=== PATIENT | female | born 1955 | race Caucasian/White ===

== ENCOUNTER → 2016-09-03 | Outpatient (CLI) | payer BC ==
[~2016-09-03] MED LIST: BUPR100T13 PO; CALCTAB5 PO; DIPH25CA37 PO; ESTR0.5T3 PO; LEVO100T7 PO; MULT-506 PO; PRLSR20 PO; SYMIN160 INH; WHEATAB2 PO
[2016-09-03 13:02] LABS: ESTIMATED AVERAGE GLUCOSE 275 mg/dl; HA1C FLAG Normal (Normal)
[2016-09-03 14:33] LABS: ALB/GLOB RATIO 1.3 (0.9-2); ALKALINE PHOSPHATASE 83 U/L (45-117); ALT/SGPT 76 U/L (12-78); AST/SGOT 25 U/L (15-37); BLOOD UREA NITROGEN 21 mg/dl (7-18); BUN/CREATININE RATIO 17.3 (10-20); CALCIUM 8.9 mg/dl (8.5-10.1); CARBON DIOXIDE 19 mmol/L (21-32); CHLORIDE 101 mmol/L (98-107); CHOLESTEROL 182 mg/dl (0-200); CHOLESTEROL/HDL RATIO 3.6; HDL CHOLESTEROL 50 mg/dl; LDL CHOLESTEROL CALCULATED 80 mg/dl; POTASSIUM 4.5 mmol/L (3.5-5.1); SODIUM 135 mmol/L (136-145); TRIGLYCERIDES 262 mg/dl (0-150); VERY LOW DENSITY LIPOPROT CALC 52 mg/dl
[2016-09-03 15:05] LABS: GLUCOSE 517 mg/dl (70-99)
[2016-09-03 15:47] LABS: BETA-HYDROXYBUTYRATE 1.29 mg/dL (0.2-2.81)
== END | disposition home or self-care (01) ==
LOC: C.LABBFT 10:54
PROVIDERS: ATTEND Internal Medicine
DX: R73.01 Impaired fasting glucose (principal); E03.9 Hypothyroidism, unspecified

== ENCOUNTER → 2016-10-10 | Outpatient (CLI) | payer BC ==
[~2016-10-10] VITALS: Ht 153.7 cm; Wt 78.9 kg
[2016-10-10 15:30] VITALS: BP_DIAS 82
[2016-10-10 15:36] VITALS: Ht 153.7 cm; Wt 78.9 kg
== END | disposition home or self-care (01) ==
LOC: C.NRED 12:57
PROVIDERS: ATTEND Internal Medicine
DX: E11.9 Type 2 diabetes mellitus without complications (principal)

== ENCOUNTER → 2016-12-27 | Outpatient (CLI) | payer BC ==
--- NOTE | 2016-12-27 13:51 | DIAGNOSTIC IMAGING REPORT ---
CT LUNG SCREENING, LOW DOSE WITH COMPUTER-AIDED DETECTION (CAD) CLINICAL HISTORY: Former smoker. Screening for lung cancer. COMPARISON STUDY: Chest radiograph August 23, [address] August 24, 2009. CT DOSE: 84.63 mGy.cm TECHNIQUE: Low-dose helical CT was acquired without intravenous contrast from lung apices to bases and reconstructed at 2.5 mm every 2 mm. CAD was utilized for this study. FINDINGS: There are no enlarged axillary, mediastinal or hilar lymph nodes. The heart is mildly enlarged. Central airways are patent. Note is made of a 1.9 x 1.7 cm nodular opacity within the right middle lobe shown on image 139 of 262. While indeterminate, the appearance favors atelectasis. No additional nodules or nodular opacities are identified. Minimal lingular opacity reflects atelectasis. Central airways are patent. There is no pneumothorax or pleural effusion. There is fatty infiltration of the liver. IMPRESSION: 1. 1.9 x 1.7 cm nodular opacity within the right middle lobe. While indeterminate, the configuration favors atelectasis. A pulmonary nodule could appear similar although is considered less likely. A follow-up diagnostic chest CT in 3 months is recommended. 2. Fatty liver. 3. No thoracic lymphadenopathy. CAD FINDINGS: Overall Lung RADS Category: 4B Lung RADS Management Recommendation: Lung-RADS 4B: Detailed follow up needed. Lung RADS Follow Up Date: March 29, [address] chest [address]. Lung RADS Nodule ID: 1 Electronically signed by: Jorge Alberto Leal M.D. 12/27/2016 1:50 PM Dictated Date/Time: 12/27/2016 8:31 AM
== END | disposition home or self-care (01) ==
LOC: C.CTS 08:08
PROVIDERS: ATTEND Internal Medicine
DX: R91.8 Other nonspecific abnormal finding of lung field (principal); Z87.891 Personal history of nicotine dependence; K76.0 Fatty (change of) liver, not elsewhere classified

== ENCOUNTER → 2017-04-01 | Outpatient (CLI) | payer BC ==
--- NOTE | 2017-04-01 13:12 | DIAGNOSTIC IMAGING REPORT ---
(CHEST) THORAX WITHOUT CLINICAL HISTORY: 61 years-old Female presenting with solitary lung nodule. TECHNIQUE: Multidetector CT imaging of the chest was performed without the use of intravenous contrast. IV contrast: None. A dose lowering technique was used consistent with the principles of ALARA (as low as reasonably achievable). COMPARISON: 08/24/2009 and low-dose screening CT on 12/27/2016 CT DOSE (mGy.cm): The estimated cumulative dose is 354.06 mGy.cm. FINDINGS: Power Regulator topogram: Unremarkable. On soft tissue windows, normal thyroid and thoracic inlet. No axillary, supraclavicular, hilar, or mediastinal lymphadenopathy. Atherosclerosis of the descending thoracic aorta. Normal heart size. Minimal corner artery calcification. No pericardial or pleural effusion. Severe hepatic steatosis. On lung windows, platelike consolidation in the right middle lobe, likely atelectasis or scarring. This is unchanged in size. 3 mm solid perifissural nodule in the right lower lobe (series 4 image 158). This is unchanged since 2009. Airways patent. On bone windows, degenerative changes of the spine. IMPRESSION: 1. Previously noted nodular opacity in the right middle lobe is unchanged in size and most likely represents platelike atelectasis or scarring. 2. Hepatic steatosis. Electronically signed by: Devin Villagomez M.D. 04/01/2017 1:10 PM Dictated Date/Time: 04/01/2017 1:05 PM
== END | disposition home or self-care (01) ==
LOC: C.CTS 12:52
PROVIDERS: ATTEND Internal Medicine
DX: R91.1 Solitary pulmonary nodule (principal); K76.0 Fatty (change of) liver, not elsewhere classified

== ENCOUNTER → 2017-04-15 | Outpatient (CLI) | payer BC ==
--- NOTE | 2017-04-16 15:13 | MAMMOGRAPHY REPORT ---
BILATERAL DIGITAL SCREENING MAMMOGRAM TOMOSYNTHESIS WITH CAD: 04/15/2017 CLINICAL HISTORY: Routine screening. Patient has no complaints. TECHNIQUE: Breast tomosynthesis in addition to standard 2D mammography was performed. Current study was also evaluated with a Computer Aided Detection (CAD) system. COMPARISON: Comparison is made to exams dated: 04/11/2016 mammogram, 04/06/2015 mammogram, 02/23/2014 dom mogram, 12/09/2012 mammogram, 09/21/2011 mammogram, and 08/22/2010 mammogram - [facility] er. BREAST COMPOSITION: The tissue of both breasts is almost entirely fatty. FINDINGS: There are stable focal asymmetries in the left upper outer posterior breast and subareolar breast. No new suspicious mass, architectural distortion or cluster of microcalcifications is seen. IMPRESSION: ACR BI-RADS CATEGORY 1: NEGATIVE There is no mammographic evidence of malignancy. A 1 year screening mammogram is recommended. The pa tient will receive written notification of the results. Approximately 10% of breast cancers are not detected with mammography. A negative mammographic report should not delay biopsy if a clinically suggestive mass is present. Azul Gu M.D. ay/:04/15/2017 21:04:05 [employer] Fitness Program Coordinator: Malissa Jackson, [facility] letter sent: Normal 1/2 BI-RADS Code: ACR BI-RADS Category 1: Negative
== END | disposition home or self-care (01) ==
LOC: C.MAMM 09:06
PROVIDERS: ATTEND Internal Medicine
DX: Z12.31 Encounter for screening mammogram for malignant neoplasm of breast (principal)

== ENCOUNTER → 2017-05-03 | Outpatient (CLI) | payer BC ==
--- NOTE | 2017-05-03 10:27 | DIAGNOSTIC IMAGING REPORT ---
ABDOMINAL ULTRASOUND, RIGHT UPPER QUADRANT HISTORY: THROMBOCYTOPENIA. COMPARISON: None. FINDINGS: Pancreas: The pancreas demonstrates a normal echotexture. Liver: The liver is echogenic consistent with fatty change. Gallbladder: No gallbladder wall thickening. No gallstones. 3 mm gallbladder polyp. CBD: 6 mm. Right kidney: No hydronephrosis. Spleen: Normal in size measuring 8.9 cm in length. IMPRESSION: 1. Hepatic steatosis. 2. The spleen is normal in size. 3. A 3 mm gallbladder polyp. Electronically signed by: Gabe Acuna M.D. 05/03/2017 10:26 AM Dictated Date/Time: 05/03/2017 10:19 AM
== END | disposition home or self-care (01) ==
LOC: C.ULTR 09:42
PROVIDERS: ATTEND Internal Medicine Hematology & Oncology
DX: D69.6 Thrombocytopenia, unspecified (principal); Z86.19 Personal history of other infectious and parasitic diseases

== ENCOUNTER → 2017-07-31 | Outpatient (CLI) | payer BC ==
[2017-07-31 17:26] LABS: MEAN CORPUSCULAR HGB CONC 34.6 g/dl (32-36)
[2017-07-31 17:38] LABS: HEMATOCRIT 44.5 % (37-47); HEMOGLOBIN 15.4 g/dL (12.0-16.0); MEAN CELL VOLUME 90.6 fL (80-100); MEAN CORPUSCULAR HEMOGLOBIN 31.4 pg (25-34); RED CELL DISTRIBUTION WIDTH CV 12.9 % (11.5-14.5); RED CELL DISTRIBUTION WIDTH SD 42.6 fL (36.4-46.3)
[2017-07-31 17:39] LABS: ALT/SGPT 118 U/L (12-78); AST/SGOT 55 U/L (15-37); BLOOD UREA NITROGEN 21 mg/dl (7-18); CALCIUM 8.2 mg/dl (8.5-10.1); CARBON DIOXIDE 26 mmol/L (21-32); GLUCOSE 125 mg/dl (70-99); LIPASE 121 U/L (73-393); POTASSIUM 4.1 mmol/L (3.5-5.1); SODIUM 138 mmol/L (136-145)
[2017-07-31 17:41] LABS: ALKALINE PHOSPHATASE 75 U/L (45-117)
[2017-07-31 17:51] LABS: PLATELET COUNT 118 K/uL (130-400)
[2017-07-31 18:17] LABS: BASO % 0.7 %; BASO ABS # 0.04 K/uL (0-0.2); EOS % 3.4 %; EOS ABS # 0.19 K/uL (0-0.5); IG# 0.01 K/uL (0.00-0.02); LYMPH % 29.6 %; LYMPH ABS # 1.66 K/uL (1.2-3.4); MONO % 6.4 %; MONO ABS # 0.36 K/uL (0.11-0.59); NEUT % 59.7 %; NEUT ABS # 3.34 K/uL (1.4-6.5)
== END | disposition home or self-care (01) ==
LOC: C.LABBFT 13:24
PROVIDERS: ATTEND Nurse Practitioner
DX: R11.2 Nausea with vomiting, unspecified (principal)

== ENCOUNTER → 2017-08-02 | Outpatient (CLI) | payer BC ==
--- NOTE | 2017-08-02 08:18 | DIAGNOSTIC IMAGING REPORT ---
ULTRASOUND RIGHT UPPER QUADRANT ABDOMEN CLINICAL HISTORY: Nausea and vomiting. COMPARISON STUDY: Abdominal ultrasound dated 05/03/2017. TECHNIQUE: Real-time, grayscale, and color flow sonography of the right upper quadrant of the abdomen was performed. Images are reviewed in the transverse and longitudinal planes. FINDINGS: Liver: The liver is enlarged and demonstrates heterogeneously increased echotexture consistent with hepatic steatosis. Note that this degrades acoustic penetration of the liver. There is no intrahepatic biliary ductal dilatation. The main portal vein is patent. Gallbladder: Small gallbladder polyps are incidentally noted and measure up to 3 mm. The gallbladder is otherwise normal in appearance. No gallstones are identified. There is no gallbladder wall thickening or pericholecystic fluid. A sonographic Narvaez's sign is reportedly absent. The common bile duct measures up to 0.7 cm in diameter. Pancreas: Visualized portions of the pancreatic head and body are normal in appearance. Right kidney: Survey images of the right kidney demonstrate normal size and echotexture. There is no hydronephrosis. Ascites: None. IMPRESSION: 1. No acute sonographic abnormality is identified in the right upper quadrant. No gallstones are seen. 2. Hepatomegaly and severe hepatic steatosis. 3. Small gallbladder polyps are incidentally noted and unchanged. Electronically signed by: Perez Covington M.D. 08/02/2017 8:16 AM Dictated Date/Time: 08/02/2017 8:14 AM
== END | disposition home or self-care (01) ==
LOC: C.ULTR 07:40
PROVIDERS: ATTEND Nurse Practitioner
DX: R11.2 Nausea with vomiting, unspecified (principal)

== ENCOUNTER → 2017-08-12 | Outpatient (CLI) | payer OTHER ==
[2017-08-12 10:44] LABS: MEAN CORPUSCULAR HGB CONC 34.2 g/dl (32-36)
[2017-08-12 10:55] LABS: HEMATOCRIT 41.2 % (37-47); HEMOGLOBIN 14.1 g/dL (12.0-16.0); MEAN CELL VOLUME 91.8 fL (80-100); MEAN CORPUSCULAR HEMOGLOBIN 31.4 pg (25-34); RED CELL DISTRIBUTION WIDTH CV 13.1 % (11.5-14.5); RED CELL DISTRIBUTION WIDTH SD 43.6 fL (36.4-46.3); WHITE BLOOD COUNT 6.55 K/uL (4.8-10.8)
[2017-08-12 11:04] LABS: MEAN PLATELET VOLUME 14.7 fL (7.4-10.4); PLATELET COUNT 134 K/uL (130-400)
[2017-08-12 11:21] LABS: ALBUMIN 3.9 gm/dl (3.4-5.0)
== END | disposition home or self-care (01) ==
LOC: C.LAB1850 10:16
PROVIDERS: ATTEND Nurse Practitioner
DX: R11.2 Nausea with vomiting, unspecified (principal); R19.7 Diarrhea, unspecified; R74.0 Nonspecific elevation of levels of transaminase and lactic acid dehydrogenase [LDH]; D69.6 Thrombocytopenia, unspecified

== ENCOUNTER 2021-04-24 07:19 | Inpatient (IN) ==
[2021-04-24] MEDS ORDERED: CEFEPIME 2,000 MG/20 ML VIAL IV STA (07:28)
[2021-04-24] MEDS ORDERED: SODIUM CHLORIDE 0.9% 1000ML 1,000 ML IV STA (07:28)
[2021-04-24 07:58] LABS: Appearance Urine Clear (Clear); Bacteria Urine Automated Negative (Negative); Bilirubin Urine Negative (Negative); Blood Urine 1+ (Negative); Color Urine Yellow; Epithelial Cell Urine Auto >30 /lpf (0-5); Glucose Urine UA Negative (Negative); Ketones Urine Negative (Negative); Leukocyte Esterase Urine 2+ (Negative); Nitrite Urine Negative (Negative); Protein Urine 1+ (Negative); Specific Gravity Urine 1.016 (1.000-1.030); Urobilinogen Urine Negative (Negative); WBC Urine Automated >30 /hpf (0-5); pH Urine 5.5 (4.5-7.5)
[2021-04-24 08:10] LABS: Albumin Level 3.1 gm/dl (3.4-5.0); BUN Creatinine Ratio 10.9 (10-20); Calcium 8.3 mg/dl (8.5-10.1); Creatinine Clr Calc Pharmacy 41.7 ml/min; Est GFR (African American) 51.7 ml/min; Est GFR (Non-African American) 44.6 ml/min; Potassium 4.3 mmol/L (3.5-5.1)
[2021-04-24 08:13] LABS: Albumin Globulin Ratio 0.9 (0.9-2); Bilirubin,Total 0.5 mg/dl (0.2-1); Globulin 3.5 gm/dl (2.5-4.0); Total Protein 6.6 gm/dl (6.4-8.2)
[2021-04-24 08:15] LABS: Basophils # (auto) 0.05 K/uL (0-0.2); Basophils % (auto) 0.8 %; Eosinophils # (auto) 0.12 K/uL (0-0.5); Giant Platelets 1+; Hematocrit (blood only) 38.5 % (37-47); Hemoglobin 12.6 g/dL (12.0-16.0); Immature Granulocytes # (auto) 0.01 K/uL (0.00-0.02); Immature Granulocytes % (auto) 0.2 %; Lymphocytes # (auto) 0.73 K/uL (1.2-3.4); Lymphocytes % (auto) 12.1 %; Mean Corpuscular Hemoglobin 30.2 pg (25-34); Mean Corpuscular Hgb Conc 32.7 g/dL (32-36); Mean Corpuscular Volume 92.3 fL (80-100); Mean Platelet Volume 14.7 fL (7.4-10.4); Monocytes # (auto) 0.59 K/uL (0.11-0.59); Monocytes % (auto) 9.8 %; Neutrophils # (auto) 4.54 K/uL (1.4-6.5); Neutrophils % (auto) 75.1 %; Platelet Count 111 K/uL (130-400); Platelet Estimate Decreased (Normal); RDW Coefficient of Variation 12.9 % (11.5-14.5); RDW Standard Deviation 43.9 fL (36.4-46.3); Red Blood Count 4.17 M/uL (4.2-5.4); White Blood Count 6.04 K/uL (4.8-10.8)
[2021-04-24] MEDS ORDERED: SODIUM CHLORIDE 0.9% 1000ML 1,000 ML IV ONE (08:35)
--- NOTE | 2021-04-24 09:29 | History & Physical Report ---
Date of Service April 24, 2021 Assessment & Plan (1) Acute pyelonephritis: Plan: Attending: Dr. Verdin Impression: 66-year-old female presented to emergency department yesterday and found to have urinary tract infection/acute pyelonephritis. Was discharged home on Bactrim. Blood cultures revealed gram-negative bacilli. Patient called by the emergency room staff and asked to report back to the hospital. She is being admitted for IV antibiotics and will be started on cefepime 2 g every 12 hours Patient with rigors, fever, gram-negative bacilli in urine and blood Renal ultrasound performed * Atrophic right kidney with nonobstructive calculus which was also seen on recent prior CT of abdomen and pelvis. * Possible minimal hydronephrosis on the left. * Nonobstructive calculi are seen. 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 labs (4) Lung nodule, solitary: Plan: Incidental finding on CT scan of the abdomen pelvis yesterday. Dedicated CT scan of the lung on 02/10/2020 and 02/13/2021 shows stable 3 mm right lower lobe nodule Patient with past medical history including tobacco abuse Continue annual screening (5) Hypothyroidism: Plan: Continue levothyroxine 88 mcg daily (6) Hypertension: Plan: Continue losartan Vital signs per protocol (7) Esophageal reflux: Plan: Omeprazole as an outpatient We will use pantoprazole while inpatient (8) Dyslipidemia: Plan: Continue rosuvastatin (9) Chronic obstructive pulmonary disease: Plan: Prior tobacco abuse history Symbicort as an outpatient Brio Ellipta (ICS/LABA) while inpatient Vital signs per protocol No evidence of acute exacerbation (10) Hepatosplenomegaly: Plan: noted on CT abd/pel could be from fatty liver f/u as outpt (11) Thrombocytopenia: Plan: likely secondary to liver issues and splenomegaly follow CBC (12) DVT prophylaxis: Plan: Heparin 5000 units subcutaneously every 12 hours Please refer to Dr. Verdin's addendum for further recommendations and corrections History of Present Illness Chief Complaint: Pyelonephritis Primary Care Provider: Jolie Leal MD Attending: Dr. Verdin This is a 66-year-old female no with a past medical history of cervicalgia, tubular adenoma of colon, history of thrombocytopenia, onychomycosis, solitary lung nodule right lower lobe, diabetes mellitus type 2, diverticulosis, hypertension, hypothyroidism. Patient states that last Saturday she began having some discomfort in the suprapubic region. She also noted some discomfort in the genital region. She thought initially that she may be developing a yeast infection but then developed fever and rigors over the weekend. She presented the emergency room yesterday and was treated with Bactrim and discharged home with a diagnosis of acute pyelonephritis. Patient was pancultured yesterday and today results revealed gram-negative bacilli in the urine as well as 2 out of 2 blood cultures. Patient was called and asked to report back to the emergency department for evaluation and IV antibiotics. We are then asked to evaluate the patient for appropriateness for admission. Patient reports that since starting the Bactrim she feels a little bit better but did still have some rigors yesterday. She has had no nausea or vomiting. She has no hematuria. She has noted that her urine has been darker. She has no specific CVA tenderness. She has no suprapubic tenderness today. Patient was given cefepime in the emergency department. Allergies Allergy/AdvReac Type Severity Reaction Status Date / Time Penicillins Allergy Mild HIVES;SOB Verified 04/24/21 08:12 shellfish derived Allergy Mild HIVES;SOB Verified 04/24/21 08:12 clarithromycin [From Biaxin] AdvReac Verified 04/24/21 08:12 varenicline [From Chantix] AdvReac pt felt Verified 04/24/21 08:12 immobile Home Medications Medication Instructions Recorded Confirmed Type fluticasone propionate 50 1 sprays INTRANASAL HS #1 gm 02/11/19 04/24/21 History mcg/actuation nasal spray,suspension (Flonase Allergy Relief) levalbuterol tartrate 45 See Rx Instructions INH .COMPLEX 02/11/19 04/24/21 History mcg/actuation aerosol inhaler (Xopenex HFA) budesonide-formoterol HFA 160 2 puff INHALATION QAM 04/23/21 04/24/21 History mcg-4.5 mcg/actuation aerosol inhaler (Symbicort) calcium carbonate 500 mg (1,250 1 tab PO QAM 04/23/21 04/24/21 History mg)-vitamin D3 400 unit tablet (Calcium 500 + D) levothyroxine 88 mcg tablet 88 mcg PO DAILYBB 04/23/21 04/24/21 History (Synthroid) lorazepam 0.5 mg tablet (Ativan) 0.5 mg PO BID PRN 04/23/21 04/24/21 History losartan 25 mg tablet (Cozaar) 25 mg PO QAM 04/23/21 04/24/21 History metformin 500 mg tablet 500 mg PO BID 04/23/21 04/24/21 History multivitamin 1 tab PO QAM 04/23/21 04/24/21 History omeprazole 20 mg capsule,delayed 20 mg PO QDD 04/23/21 04/24/21 History release rosuvastatin 5 mg tablet (Crestor) 5 mg PO HS 04/23/21 04/24/21 History sulfamethoxazole 800 1 tab PO Q12H 10 Days #20 tab 04/23/21 04/24/21 Rx mg-trimethoprim 160 mg tablet (Bactrim DS) Past Med/Surg History Medical History (Updated 04/24/21 @ 22:41 by Dixie Verdin MD) Allergic rhinitis Anxiety Bursitis of hip Carpal tunnel syndrome Chronic obstructive pulmonary disease Depression Diverticulosis of colon Dyslipidemia Esophageal reflux Eustachian tube dysfunction Hepatosplenomegaly History of pelvic mass Hypertension Hypothyroidism Lung nodule, solitary Menopause Microalbuminuria Onychomycosis Sensorineural hearing loss (SNHL) of both ears Thrombocytopenia Tubular adenoma of colon Surgical History History of decompression of median nerve neuroplasty- carpal tunnel History of orthopedic surgery diagnostic arthroscopy with limited debridement, acromioplasty and medium sized rotator cuff repair- RT shoulder Hx of hysterectomy Family History Family/Other Diabetes Coronary heart disease Mother Cancer Hypertension Heart disease Myocardial infarction Denies family history of Ovarian cancer Prostate cancer Breast cancer Colorectal cancer Social History Smoking Status: Former smoker Tobacco Type: Cigarettes Age Started Using Tobacco: 14; Age Quit Using Tobacco: 57; packs per day: 1; Cigarettes Per Day: 20; Smoking End Date: 10 years ago; Second Hand Exposure: No; Hx Alcohol Use: Yes Alcohol type: hard liquor Hx Substance Use: No Preferred Language: Gabonese Communication Ability: Effective Visual Impairment: No Limitations Hearing Ability: Hard of Hearing Machine I Cutter Required: No Beliefs That Will Affect Care: None marital status: Current Living Situation: Spouse current occupational status: retired 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[employer], 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 Other Information That Helps Us Care for You: No Feels Safe at Home: Yes Childhood Exposure to Second-Hand Smoke: Yes Dental Care, Regularly: Yes Physical Activity Frequency: 3-4 Times per Week Seatbelt Use: always Sunscreen Use: Yes Assistive Devices: None Review of Systems Review of Systems: All systems reviewed & are unremarkable except as noted in Subjective Physical Exam Physical Exam: GENERAL : No acute distress EYES: No icterus, gaze conjugate NOSE: No evidence of epistaxis MOUTH: No lesions or candidiasis NECK: Supple LUNGS: CTA B/L, no wheezes, rales or rhonchi HEART: Regular, rate controlled ABDOMEN: Soft, NT, ND, BS Present. No pain to deep palpation. No guarding or rebound tenderness. EXTREMITIES: No LE edema, pedal pulses intact NEURO: A&OX3 Results & Data Results & Data ([facility]) Vital Signs (Past 12 Hours) Vital Signs Temp Pulse Resp BP Pulse Ox 04/24/21 09:00 75 22 136/84 97 04/24/21 08:01 81 18 149/72 H 96 04/24/21 07:46 86 18 147/80 H 96 04/24/21 07:23 36.7 C 89 18 152/77 H 97 Laboratory Results 04/24/21 07:40 04/24/21 07:40 Diagnostic Findings Renal Ultrasound 04/24/21 09:23 EXAMINATION: RENAL ULTRASOUND CLINICAL HISTORY: Pyelonephritis, hydronephrosis COMPARISON STUDY: None. Correlation is made with CT of the abdomen and pelvis performed on April 23, 2021. FINDINGS: The right kidney measures 7.3 x 4.5 x 3.7 cm. No hydronephrosis is seen. There is 5 mm echogenic structure within upper pole which might represent calculus. The left kidney measures 12.6 x 7.4 x 7.4 cm in size and shows mild dilatation of collecting system/minimal hydronephrosis.. There are no renal masses. Urinary bladder is partially decompressed which limits evaluation. Left urinary jets is not seen. No significant urinary bladder abnormalities are demonstrated. IMPRESSION : Atrophic right kidney with nonobstructive calculus which was also seen on recent prior CT of abdomen and pelvis. Possible minimal hydronephrosis on the left. Nonobstructive calculi are seen. The rest of findings as above. ACT 112: Negative or not required by law. The above report was generated using voice recognition software. It may contain grammatical, syntax or spelling errors. Electronically signed by: Sandra Doty DO 04/24/2021 10:41 AM Medications Administered Current Inpatient Medications Acetaminophen (Acetaminophen 325 Mg Tab) 650 mg PO Q4H PRN PRN Reason: pain/fever Stop: 05/24/21 11:31 Last Admin: 04/24/21 12:16 Dose: 650 mg Documented by: Al Hydrox/Mg Hydrox/Simethicone (Aluminum/Magnesium Susp 30 Ml Udc) 30 ml PO Q6H PRN PRN Reason: Dyspepsia Stop: 05/24/21 11:31 Dextrose (Dextrose 50% 50 Ml Syringe) 25 - 50 ml IV UD PRN; Protocol PRN Reason: Hypoglycemia Protocol Stop: 05/24/21 11:31 Fluticasone Propionate (Fluticasone Propionate Na Spr 16 Gm Btl) 1 sprays MICHAEL HS NNAMDI Stop: 05/24/21 20:59 Fluticasone/Vilanterol (Fluticasone/Vilanterol 100/25mcg 14 Puffs/Inhaler) 1 puffs INH DAILY NNAMDI Stop: 05/25/21 08:59 Glucagon (Glucagon For Inj 1 Mg Vial) 1 mg SQ UD PRN; Protocol PRN Reason: Hypoglycemia Protocol Stop: 05/24/21 11:31 Glucose (Glucose 10 Tabs/Tube) 4 - 8 tabs PO UD PRN; Protocol PRN Reason: Hypoglycemia Protocol Stop: 05/24/21 11:31 Glucose (Glucose 40% Gel 15 Gm Tube) 15 - 30 gm PO UD PRN; Protocol PRN Reason: Hypoglycemia Protocol Stop: 05/24/21 11:31 Heparin Sodium (Porcine) (Heparin Sod 5,000 Unit/0.5 Ml Vial) 5,000 units SQ Q12 NNAMDI Stop: 05/24/21 20:59 Cefepime HCl 2,000 mg/ Syringe 20 mls @ 5 mls/min IV Q24H [facility]; Protocol Stop: 05/04/21 07:59 Insulin Aspart (Insulin Aspart 100 Units/Ml 3 Ml Pen) 0 units SC ACHS [facility] Stop: 05/24/21 11:31 Last Admin: 04/24/21 12:47 Dose: 1 units Documented by: Levothyroxine Sodium (Levothyroxine Sodium 88 Mcg Tablet) 88 mcg PO DAILYBB [facility] Stop: 05/25/21 06:29 Lorazepam (Lorazepam 0.5 Mg Tab) 0.5 mg PO BID PRN PRN Reason: anxiety Stop: 05/24/21 11:31 Losartan Potassium (Losartan Potassium 25 Mg Tab) 25 mg PO QAM [facility] Stop: 05/24/21 11:31 Last Admin: 04/24/21 12:49 Dose: 25 mg Documented by: Magnesium Hydroxide (Magnesium Hydroxide Susp 30 Ml Udc) 30 ml PO Q6H PRN PRN Reason: Constipation Stop: 05/24/21 11:31 Miscellaneous (Carbohydrates For Hypoglycemia ) 15 - 30 gm PO UD PRN PRN Reason: Hypoglycemia Protocol Stop: 05/24/21 11:31 Multivitamins (Multivitamin Tab) 1 tab PO QAM [facility] Stop: 05/24/21 11:31 Last Admin: 04/24/21 12:49 Dose: 1 tab Documented by: Multivitamins/Minerals (Calcium 600mg + Vit D 400 Iu Tab) 1 tab PO QAM [facility] Stop: 05/24/21 11:31 Last Admin: 04/24/21 12:49 Dose: 1 tab Documented by: Ondansetron HCl (Ondansetron Inj 2 Mg/Ml 2 Ml Vial) 4 mg IV Q6H PRN PRN Reason: Nausea Stop: 05/24/21 11:31 Pantoprazole Sodium (Pantoprazole 40 Mg Tab) 40 mg PO QDD [facility] Stop: 05/24/21 16:29 Polyethylene Glycol (Polyethylene (Miralax) 17 Gm Pack) 17 gm PO DAILY PRN PRN Reason: Constipation Stop: 05/24/21 11:31 Rosuvastatin Calcium (Rosuvastatin Calcium 5 Mg Tab) 5 mg PO HS NNAMDI Stop: 05/24/21 20:59 Code Status & VTE Plan Code Status Level I: Full resuscitation VTE Prophylaxis Plan VTE Prophylaxis will be ordered: Yes Supervising Physician Co-Signing Physician Notes PA Supervision Note: I personally saw and examined the patient. I verified all childs points and agree with PERNELL Guillermo with the following exceptions and/or additions: Pt presents as a call back to the ER after having BCxs turn positive for GNR after being seen for acute pyelonephritis in ER yesterday. Reports rigors are gone, feels about the same as yesterday but no worse. No abd pain or flank pain. No nausea and feels today was the first time she was able to eat or felt like eating in a while. Denies chest pains or shortness of breath. History and ROS reviewed as above Vitals reviewed NAD, AAOx3 Anicteric sclerae RRR no mgr CTAB no wcr ABd +BS soft NT ND Ext no edema SKin no rashes Laboratory values reviewed Imaging reviewed 66-year-old female here with acute pyelonephritis and gram-negative bacteremia With mild hydronephrosis seen on CT abdomen/pelvis and possible stone seen outside the ureter as well as minimal left sided hydronephrosis on renal ultrasound here today, will discuss to see if urology thinks intervention is necessary. Continue antibiotics Follow repeat cultures and original cultures for final ID and sensitivity Finish out the liter of fluids that she is receiving now and then discontinue She is likely going to be discharged home tomorrow PG Care Time/CCT Total # of Minutes Spent Total Time Spent with Patient: Total time spent is greater than 50% in coordination of care (as documented) at patient's floor/unit and/or counseling patient: 60 minutes Coding Level of Care Code INT OBSERVATION CARE 50M LVL 2 Diagnoses Acute pyelonephritis N10 Bacteremia R78.81 Type 2 diabetes mellitus with albuminuria E11.29; R80.9 Lung nodule, solitary R91.1 Hypothyroidism E03.9 Hypertension I10 Hypertension type: essential hypertension Esophageal reflux K21.9 Dyslipidemia E78.5 Chronic obstructive pulmonary disease J44.9 DVT prophylaxis Z29.9 Hepatosplenomegaly R16.2 Thrombocytopenia D69.6 Time Spent (min) 60 (1) Hypertension Hypertension type: essential hypertension Qualified Code(s): I10 - Essential (primary) hypertension
[2021-04-24] MEDS: NORMOSOL-R 1,000 ML IV SCH ×2 (10:26→17:11)
--- NOTE | 2021-04-24 10:42 | Ultrasound Report ---
EXAMINATION: RENAL ULTRASOUND CLINICAL HISTORY: Pyelonephritis, hydronephrosis COMPARISON STUDY: None. Correlation is made with CT of the abdomen and pelvis performed on April 23, 2021. FINDINGS: The right kidney measures 7.3 x 4.5 x 3.7 cm. No hydronephrosis is seen. There is 5 mm echogenic stru cture within upper pole which might represent calculus. The left kidney measures 12.6 x 7.4 x 7.4 cm in size and shows mild dilatation of collecting system/m inimal hydronephrosis.. There are no renal masses. Urinary bladder is partially decompressed which limits evaluation. Left urinary jets is not seen. No significant urinary bladder abnormalities are demonstrated. IMPRESSION : Atrophic right kidney with nonobstructive calculus which was also seen on recent prior CT of abdomen and pelvis. Possible minimal hydronephrosis on the left. Nonobstructive calculi are seen. The rest of findings as above. ACT 112: Negative or not required by law. The above report was generated using voice recognition software. It may contain grammatical, syntax o r spelling errors. Electronically signed by: Sandra Doty DO 04/24/2021 10:41 AM
[2021-04-24] MEDS ORDERED: GLUCOSE 40% GEL 15 GM TUBE PO PRN (11:32)
[2021-04-24] MEDS ORDERED: MAGNESIUM HYDROXIDE SUSP 30 ML UDC PO PRN (11:32)
[2021-04-24] MEDS ORDERED: LEVALBUTEROL TARTRATE 15 GM HFA.AER.AD INH SCH (11:32)
[2021-04-24] MEDS ORDERED: ONDANSETRON INJ 2 MG/ML 2 ML VIAL IV PRN (11:32)
[2021-04-24] MEDS ORDERED: DEXTROSE 50% 50 ML SYRINGE IV PRN (11:32)
[2021-04-24] MEDS ORDERED: POLYETHYLENE (MIRALAX) 17 GM PACK PO PRN (11:32)
[2021-04-24] MEDS ORDERED: CARBOHYDRATES FOR HYPOGLYCEMIA PO PRN (11:32)
[2021-04-24] MEDS ORDERED: ALUMINUM/MAGNESIUM SUSP 30 ML UDC PO PRN (11:32)
[2021-04-24] MEDS ORDERED: GLUCOSE 10 TABS/TUBE PO PRN (11:32)
[2021-04-24] MEDS ORDERED: GLUCAGON FOR INJ 1 MG VIAL SQ PRN (11:32)
[2021-04-24] MEDS: ACETAMINOPHEN 325 MG TAB PO PRN ×2 (12:16→19:57)
[2021-04-24] MEDS: INSULIN ASPART 100 UNITS/ML 3 ML PEN SC SCH ×3 (12:47→20:36)
[2021-04-24] MEDS: LOSARTAN POTASSIUM 25 MG TAB PO SCH (12:49)
[2021-04-24] MEDS: CALCIUM 600MG + VIT D 400 IU TAB PO SCH (12:49)
[2021-04-24] MEDS: MULTIVITAMIN TAB PO SCH (12:49)
--- NOTE | 2021-04-24 15:12 | Emergency Department Note ---
Impression & Plan Bacteremia ED Provider Note INFORMANT: Patient ED PROVIDER(S): Nick Tsang MD CHIEF COMPLAINT: Abnormal labs PLAN: Disposition: Admitted Condition: Good Outpatient prescription management: none Referral: None MEDICAL DECISION MAKING: Patient presented because of positive blood cultures. IV was established. Blood work was obtained. Lactate was mildly elevated. Patient was hydrated. She was given IV cefepime. Consultation was made with Dr. Verdin of the [facility] service. Patient was evaluated in the ER and admitted for further management. Triage Nursing notes reviewed and agree them. Vital Signs: reviewed and remarkable for no significant abnormalities Differential diagnosis: Bacteremia, pyelonephritis, pneumonia, influenza, meningitis, urinary tract infection, sepsis, bacteremia, as well as other pathologies. Diagnostics interpreted by me: ECG: none Cardiac Monitoring: Cardiac monitoring ordered by me: The patient was placed on continuous cardiac monitoring and observed. It revealed a normal sinus rhythm at 76 beats per minute without ectopy or evidence of dysrhythmia. Imaging studies: Deferred HPI: Patient si a 66 y/o female who presented to emergency department because of blood cultures that were positive for gram-negative bacilli. The patient states she was dealing with flank pain and fever. She was in the ER yesterday and diagnosed with a kidney infection. She is on Bactrim. She was notified about the blood work and presented back to the emergency department. She still has some mild , 4/10 flank pain but overall she is feeling relatively well all. Pt denies LOC, headache, fevers, chills, diaphoresis, visual changes, neck pain, chest pain, breathing difficulties, nausea, vomiting, abdominal pain, melena, hematochezia, numbness, weakness, lymphadenopathy, rash, or other complaints. ROS: See above HPI for pertinent positives & negatives. A total of 10 systems reviewed and were otherwise negative. PAST MEDICAL HISTORY:See Below , UTI PAST SURGICAL HISTORY:See Below, FAMILY HISTORY:See Below SOCIAL HISTORY:See Below, Former tobacco HOME MEDICATIONS:See Below ALLERGIES:See Below VITALS:See Below PHYSICAL EXAMINATION: GENERAL: Awake, alert, mildly uncomfortable-appearing, in no distress HENT: Normocephalic, atraumatic. Oropharynx unremarkable. EYES: Normal conjunctiva. Sclera non-icteric. NECK: Inspection normal. Non-tender. Supple. No nuchal rigidity. FROM. No masses. RESPIRATORY: Clear to auscultation. No wheezes. No rales. Normal respiratory effort. CARDIAC: Normal rate. Normal rhythm. No murmurs. No rubs. Extremities warm and well perfused. Pulses equal. No JVD. GI: Soft, non-distended. No tenderness to palpation. No rebound or guarding. No masses. RECTAL: Deferred. MUSCULOSKELETAL: Atraumatic. Chest examination reveals no tenderness. The back is symmetrical on inspection without obvious abnormality. There is no CVA tenderness to palpation. No joint edema. LOWER EXTREMITIES: Calves are equal size bilaterally and non-tender. No edema. No discoloration. NEURO: Normal sensorium. No sensory or motor deficits noted. SKIN: No rash or jaundice noted. Nick Tsang MD Past Med/Surg History Medical History Allergic rhinitis Anxiety Bursitis of hip Carpal tunnel syndrome Chronic obstructive pulmonary disease Depression Diverticulosis of colon Dyslipidemia Esophageal reflux Eustachian tube dysfunction History of pelvic mass Hypertension Hypothyroidism Lung nodule, solitary Menopause Microalbuminuria Onychomycosis Sensorineural hearing loss (SNHL) of both ears Thrombocytopenia Tubular adenoma of colon Surgical History History of decompression of median nerve History of orthopedic surgery Hx of hysterectomy Family History Family/Other Diabetes Coronary heart disease Mother Cancer Hypertension Heart disease Myocardial infarction Denies family history of Ovarian cancer Prostate cancer Breast cancer Colorectal cancer Social History Smoking Status: Former smoker Tobacco Type: Cigarettes Age Started Using Tobacco: 14; Age Quit Using Tobacco: 57; packs per day: 1; Cigarettes Per Day: 20; Smoking End Date: 10 years ago; Second Hand Exposure: No; Hx Alcohol Use: Yes Alcohol type: hard liquor Hx Substance Use: No Preferred Language: Mongolian Communication Ability: Effective Visual Impairment: No Limitations Hearing Ability: Hard of Hearing Career Development Associate Required: No Beliefs That Will Affect Care: None marital status: Current Living Situation: Spouse current occupational status: retired 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[employer], 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 Other Information That Helps Us Care for You: No Feels Safe at Home: Yes Childhood Exposure to Second-Hand Smoke: Yes Dental Care, Regularly: Yes Physical Activity Frequency: 3-4 Times per Week Seatbelt Use: always Sunscreen Use: Yes Assistive Devices: None Allergies Allergies Allergy/AdvReac Type Severity Reaction Status Date / Time Penicillins Allergy Mild HIVES;SOB Verified 04/24/21 08:12 shellfish derived Allergy Mild HIVES;SOB Verified 04/24/21 08:12 clarithromycin [From Biaxin] AdvReac Verified 04/24/21 08:12 varenicline [From Chantix] AdvReac pt felt Verified 04/24/21 08:12 immobile Home Meds Home Medications Medication Instructions Recorded Confirmed fluticasone propionate 50 1 sprays INTRANASAL HS #1 gm 02/11/19 04/24/21 mcg/actuation nasal spray,suspension (Flonase Allergy Relief) levalbuterol tartrate 45 See Rx Instructions INH .COMPLEX 02/11/19 04/24/21 mcg/actuation aerosol inhaler (Xopenex HFA) budesonide-formoterol HFA 160 2 puff INHALATION QAM 04/23/21 04/24/21 mcg-4.5 mcg/actuation aerosol inhaler (Symbicort) calcium carbonate 500 mg (1,250 1 tab PO QAM 04/23/21 04/24/21 mg)-vitamin D3 400 unit tablet (Calcium 500 + D) levothyroxine 88 mcg tablet 88 mcg PO DAILYBB 04/23/21 04/24/21 (Synthroid) lorazepam 0.5 mg tablet (Ativan) 0.5 mg PO BID PRN 04/23/21 04/24/21 losartan 25 mg tablet (Cozaar) 25 mg PO QAM 04/23/21 04/24/21 metformin 500 mg tablet 500 mg PO BID 04/23/21 04/24/21 multivitamin 1 tab PO QAM 04/23/21 04/24/21 omeprazole 20 mg capsule,delayed 20 mg PO QDD 04/23/21 04/24/21 release rosuvastatin 5 mg tablet (Crestor) 5 mg PO HS 04/23/21 04/24/21 Previous Rx's Medication Instructions Recorded sulfamethoxazole 800 1 tab PO Q12H 10 Days #20 tab 04/23/21 mg-trimethoprim 160 mg tablet (Bactrim DS) Results & Data (ED) Vital Signs Vital Signs - 24 hr 04/24/21 07:23 04/24/21 07:46 04/24/21 08:01 Temperature 36.7 C Temperature Source Skin Pulse Rate 89 86 81 Respiratory Rate 18 18 18 Blood Pressure 152/77 H 147/80 H 149/72 H Blood Pressure Mean 102 102 97 Pulse Oximetry 97 96 96 Oxygen Delivery Method Room Air Sepsis Recent Fever Within 48 Hours Yes Sepsis New/Unexplained Change in Mental Status No Sepsis Action Taken by Nursing No Action Required 04/24/21 09:00 Temperature Temperature Source Pulse Rate 75 Respiratory Rate 22 Blood Pressure 136/84 Blood Pressure Mean 101 Pulse Oximetry 97 Oxygen Delivery Method Sepsis Recent Fever Within 48 Hours Sepsis New/Unexplained Change in Mental Status Sepsis Action Taken by Nursing Laboratory Data Result diagrams: 04/24/21 07:40 04/24/21 07:40 Lab Results 04/24/21 04/24/21 04/24/21 Range/Units 07:40 07:40 07:40 WBC 6.04 (4.8-10.8) K/uL RBC 4.17 L (4.2-5.4) M/uL Hgb 12.6 (12.0-16.0) g/dL Hct 38.5 (37-47) % MCV 92.3 (80-100) fL MCH 30.2 (25-34) pg MCHC 32.7 (32-36) g/dL RDW Std Deviation 43.9 (36.4-46.3) fL RDW Coeff of Mikki 12.9 (11.5-14.5) % Plt Count 111 L (130-400) K/uL MPV 14.7 H (7.4-10.4) fL Immature Gran % (Auto) 0.2 % Neut % (Auto) 75.1 % Lymph % (Auto) 12.1 % [place] % (Auto) 9.8 % Eos % (Auto) 2.0 % Baso % (Auto) 0.8 % Neut # (Auto) 4.54 (1.4-6.5) K/uL Lymph # (Auto) 0.73 L (1.2-3.4) K/uL [place] # (Auto) 0.59 (0.11-0.59) K/uL Eos # (Auto) 0.12 (0-0.5) K/uL Baso # (Auto) 0.05 (0-0.2) K/uL Immature Gran # (Auto) 0.01 (0.00-0.02) K/uL Platelet Estimate Decreased L (Normal) Giant Platelets 1+ Sodium 140 (136-145) mmol/L Potassium 4.3 (3.5-5.1) mmol/L Chloride 109 H (98-107) mmol/L Carbon Dioxide 23 (21-32) mmol/L Anion Gap 9.0 (3-11) BUN 14 (7-18) mg/dl Creatinine 1.24 H (0.6-1.2) mg/dl Est Cr Clr Drug Dosing 41.7 ml/min Est GFR ( Amer) 51.7 ml/min Est GFR (Non-Af Amer) 44.6 ml/min BUN/Creatinine Ratio 10.9 (10-20) Glucose 236 H (70-99) mg/dl Lactate 2.1 H* (0.4-2.0) mmol/L Calcium 8.3 L (8.5-10.1) mg/dl Total Bilirubin 0.5 (0.2-1) mg/dl AST 48 H (15-37) U/L ALT 69 (12-78) U/L Alkaline Phosphatase 71 (45-117) U/L Total Protein 6.6 (6.4-8.2) gm/dl Albumin 3.1 L (3.4-5.0) gm/dl Globulin 3.5 (2.5-4.0) gm/dl Albumin/Globulin Ratio 0.9 (0.9-2) Urine Color Urine Appearance (Clear) Urine pH (4.5-7.5) Ur Specific [place] (1.000-1.030) Urine Protein (Negative) Urine Glucose (UA) (Negative) Urine Ketones (Negative) Urine Blood (Negative) Urine Nitrite (Negative) Urine Bilirubin (Negative) Urine Urobilinogen (Negative) Ur Leukocyte Esterase (Negative) Urine WBC (Auto) (0-5) /hpf Urine RBC (Auto) (0-4) /hpf U Hyaline Cast (Auto) (0-5) /lpf U Epithel Cells (Auto) (0-5) /lpf Urine Bacteria (Auto) (Negative) COVID-19 Eval Order SARS-CoV-2 (PCR) (Negative) 04/24/21 04/24/21 04/24/21 Range/Units 07:40 07:56 07:56 WBC (4.8-10.8) K/uL RBC (4.2-5.4) M/uL Hgb (12.0-16.0) g/dL Hct (37-47) % MCV (80-100) fL MCH (25-34) pg MCHC (32-36) g/dL RDW Std Deviation (36.4-46.3) fL RDW Coeff of Mikki (11.5-14.5) % Plt Count (130-400) K/uL MPV (7.4-10.4) fL Immature Gran % (Auto) % Neut % (Auto) % Lymph % (Auto) % [place] % (Auto) % Eos % (Auto) % Baso % (Auto) % Neut # (Auto) (1.4-6.5) K/uL Lymph # (Auto) (1.2-3.4) K/uL Wayne # (Auto) (0.11-0.59) K/uL Eos # (Auto) (0-0.5) K/uL Baso # (Auto) (0-0.2) K/uL Immature Gran # (Auto) (0.00-0.02) K/uL Platelet Estimate (Normal) Giant Platelets Sodium (136-145) mmol/L Potassium (3.5-5.1) mmol/L Chloride (98-107) mmol/L Carbon Dioxide (21-32) mmol/L Anion Gap (3-11) BUN (7-18) mg/dl Creatinine (0.6-1.2) mg/dl Est Cr Clr Drug Dosing ml/min Est GFR ( Amer) ml/min Est GFR (Non-Af Amer) ml/min BUN/Creatinine Ratio (10-20) Glucose (70-99) mg/dl Lactate (0.4-2.0) mmol/L Calcium (8.5-10.1) mg/dl Total Bilirubin (0.2-1) mg/dl AST (15-37) U/L ALT (12-78) U/L Alkaline Phosphatase (45-117) U/L Total Protein (6.4-8.2) gm/dl Albumin (3.4-5.0) gm/dl Globulin (2.5-4.0) gm/dl Albumin/Globulin Ratio (0.9-2) Urine Color Yellow Urine Appearance Clear (Clear) Urine pH 5.5 (4.5-7.5) Ur Specific [place] 1.016 (1.000-1.030) Urine Protein 1+ H (Negative) Urine Glucose (UA) Negative (Negative) Urine Ketones Negative (Negative) Urine Blood 1+ H (Negative) Urine Nitrite Negative (Negative) Urine Bilirubin Negative (Negative) Urine Urobilinogen Negative (Negative) Ur Leukocyte Esterase 2+ H (Negative) Urine WBC (Auto) >30 H (0-5) /hpf Urine RBC (Auto) 10-30 H (0-4) /hpf U Hyaline Cast (Auto) 5-10 H (0-5) /lpf U Epithel Cells (Auto) >30 H (0-5) /lpf Urine Bacteria (Auto) Negative (Negative) COVID-19 Eval Order Covid19 at [facility] SARS-CoV-2 (PCR) NEGATIVE (Negative) Administered Medications Acetaminophen (Acetaminophen 325 Mg Tab) 650 mg PO Q4H PRN PRN Reason: pain/fever Stop: 05/24/21 11:31 Last Admin: 04/24/21 12:16 Dose: 650 mg Documented by: [id number] Parenteral Electrolytes (Normosol-R) 1,000 mls @ 150 mls/hr IV .Q6H40M [facility] Stop: 05/24/21 09:29 Last Admin: 04/24/21 10:26 Dose: 150 mls/hr Documented by: [id number] Insulin Aspart (Insulin Aspart 100 Units/Ml 3 Ml Pen) 0 units SC ACHS [facility] Stop: 05/24/21 11:31 Last Admin: 04/24/21 12:47 Dose: 1 units Documented by: [id number] Cosigned by: [id number] Losartan Potassium (Losartan Potassium 25 Mg Tab) 25 mg PO QAM [facility] Stop: 05/24/21 11:31 Last Admin: 04/24/21 12:49 Dose: 25 mg Documented by: [id number] Multivitamins (Multivitamin Tab) [facility] Stop: 05/24/21 11:31 Last Admin: 04/24/21 12:49 Dose: 1 tab Documented by: [id number] Multivitamins/Minerals (Calcium 600mg + Vit D 400 Iu Tab) 1 tab PO QAM NNAMDI Stop: 05/24/21 11:31 Last Admin: 04/24/21 12:49 Dose: 1 tab Documented by: [id number] Discontinued Medications Sodium Chloride (Nss 1000ml) 1,000 mls @ 125 mls/hr IV .Q8H STA Stop: 04/24/21 15:27 Last Infusion: 04/24/21 12:39 Dose: 0 mls/hr Documented by: [id number] Admin: 04/24/21 07:53 Dose: 125 mls/hr Documented by: [id number] Cefepime HCl (Maxipime) 2,000 mg in 20 mls @ 5 mls/min IV NOW STA; Protocol Stop: 04/24/21 07:31 Last Admin: 04/24/21 07:54 Dose: 5 mls/min Documented by: [id number] Sodium Chloride (Nss 1000ml) 1,000 mls @ 999 mls/hr IV .Q1H1M ONE Stop: 04/24/21 09:35 Last Infusion: 04/24/21 10:00 Dose: 0 mls/hr Documented by: [id number] Admin: 04/24/21 08:46 Dose: 999 mls/hr Documented by: [id number] Discharge Plan Visit Data Chief Complaint: Abnormal Labs/Diagnostic Testing Stated Complaint: POSITIVE BLOOD CULTURE ED Provider: Nick Tsang Discharge Problem: Bacteremia Patient Disposition: Admitted As Inpatient Discharge Instructions Interventions: ED Discharge Assessment Last Done: 04/24/21 10:53
[2021-04-24] MEDS: PANTOprazole 40 MG TAB PO SCH (18:41)
[2021-04-24] MEDS: HEPARIN SOD 5,000 UNIT/0.5 ML VIAL SQ SCH (19:57)
[2021-04-24] MEDS: ROSUVASTATIN CALCIUM 5 MG TAB PO SCH ×2 (19:58→20:57)
[2021-04-24] MEDS: FLUTICASONE PROPIONATE NA SPR 16 GM BTL NAE SCH (19:58)
[2021-04-24] MEDS: LORazepam 0.5 MG TAB PO PRN (23:00)
[2021-04-25] MEDS: LEVOTHYROXINE SODIUM 88 MCG TABLET PO SCH (05:45)
[2021-04-25 06:46] LABS: Hematocrit (blood only) 36.3 % (37-47); Hemoglobin 11.8 g/dL (12.0-16.0); Mean Corpuscular Hgb Conc 32.5 g/dL (32-36); Mean Corpuscular Volume 92.4 fL (80-100); Mean Platelet Volume 14.1 fL (7.4-10.4); Platelet Count 112 K/uL (130-400); RDW Coefficient of Variation 12.8 % (11.5-14.5); RDW Standard Deviation 43.4 fL (36.4-46.3); Red Blood Count 3.93 M/uL (4.2-5.4); White Blood Count 4.53 K/uL (4.8-10.8)
[2021-04-25 06:47] LABS: Basophils # (auto) 0.03 K/uL (0-0.2); Basophils % (auto) 0.7 %; Eosinophils # (auto) 0.16 K/uL (0-0.5); Eosinophils % (auto) 3.5 %; Giant Platelets 2+; Lymphocytes # (auto) 1.29 K/uL (1.2-3.4); Lymphocytes % (auto) 28.5 %; Monocytes # (auto) 0.43 K/uL (0.11-0.59); Monocytes % (auto) 9.5 %; Neutrophils # (auto) 2.62 K/uL (1.4-6.5); Neutrophils % (auto) 57.8 %; Platelet Estimate Decreased (Normal)
[2021-04-25 07:04] LABS: BUN Creatinine Ratio 13.6 (10-20); Calcium 8.6 mg/dl (8.5-10.1); Creatinine Clr Calc Pharmacy 55.4 ml/min; Est GFR (African American) 72.2 ml/min; Est GFR (Non-African American) 62.3 ml/min; Potassium 4.2 mmol/L (3.5-5.1)
[2021-04-25 07:56] LABS: Estimated Average Glucose 137 mg/dl; Hemoglobin A1C 6.4 % (4.5-5.6)
[2021-04-25] MEDS: INSULIN ASPART 100 UNITS/ML 3 ML PEN SC SCH ×4 (09:10→20:39)
[2021-04-25] MEDS: CALCIUM 600MG + VIT D 400 IU TAB PO SCH (09:14)
[2021-04-25] MEDS: HEPARIN SOD 5,000 UNIT/0.5 ML VIAL SQ SCH ×2 (09:14→21:38)
[2021-04-25] MEDS: FLUTICASONE/VILANTEROL 100/25MCG 14 PUFFS/INHALER INH SCH (09:15)
[2021-04-25] MEDS: LOSARTAN POTASSIUM 25 MG TAB PO SCH (09:15)
[2021-04-25] MEDS: MULTIVITAMIN TAB PO SCH (09:15)
[2021-04-25] MEDS: CEFEPIME 2,000 MG in SYRINGE 0 ML IV SCH (09:25)
--- NOTE | 2021-04-25 15:35 | Hospitalist Progress Note ---
Date of Service April 25, 2021 Assessment & Plan (1) Acute pyelonephritis: Plan: Presented with with fever/rigors, left-sided abdominal pain, and found to have urinary tract infection/acute pyelonephritis upon initial visit to the ER 04/23. Was discharged home on Bactrim. Blood cultures drawn during the ER visit revealed gram-negative bacilli and the patient was recalled by the emergency room staff for admission for IV antibiotics Fevers persist but overall improving-expect fevers to persist for at least several days in the setting of acute pyelonephritis and E. coli bacteremia Renal ultrasound performed * Atrophic right kidney with nonobstructive calculus which was also seen on recent prior CT of abdomen and pelvis. * Possible minimal hydronephrosis on the left. * Nonobstructive calculi are seen. * Mild dilatation of the collecting system of the left kidney as well as minimal hydronephrosis noted Suspect the mild hydronephrosis on the left is secondary to the acute pyelonephritis-there is no distal ureterolithiasis but rather a pelvic phlebolith outside of the ureter-Case reviewed with urologist Dr. Mcgee Urine culture is growing pansensitive E. coli Blood cultures with gram-negative bacilli in both sets-ID still pending Repeat blood cultures no growth to date-drawn after she took 2 doses of Bactrim -Continue cefepime IV for now while awaiting final ID of blood cultures -No further IV fluids needed -Plan to discharged home likely on oral antibiotics to complete a 2-week course -Should follow-up with urology as an outpatient for work-up for atrophic right kidney (2) Bacteremia: Plan: As above -Follow-up blood cultures (3) Type 2 diabetes mellitus with albuminuria: Plan: Hold Metformin from home Blood glucose here is well controlled Hemoglobin A1c is 6.4% Continue NovoLog sliding scale insulin while inpatient Can restart Metformin upon discharge (4) Lung nodule, solitary: Plan: Incidental finding on CT scan of the abdomen pelvis yesterday. Dedicated CT scan of the lung on 02/10/2020 and 02/13/2021 shows stable 3 mm right lower lobe nodule Patient with past medical history including tobacco abuse Continue annual follow-up with CT scans (5) Hypothyroidism: Plan: Continue levothyroxine 88 mcg daily TSH normal in 06/2020 (6) Hypertension: Plan: Blood pressures are fairly well controlled here Continue losartan Vital signs per protocol (7) Esophageal reflux: Plan: Omeprazole as an outpatient We will use pantoprazole while inpatient (8) Dyslipidemia: Plan: Continue rosuvastatin (9) Chronic obstructive pulmonary disease: Plan: Prior tobacco abuse history Symbicort as an outpatient Breo Ellipta (ICS/LABA) while inpatient Vital signs per protocol No evidence of acute exacerbation (10) Hepatosplenomegaly: Plan: noted on CT abd/pel could be from fatty liver f/u as outpt Also with some scattered retroperitoneal lymphadenopathy which is not pathologic by size criteria (11) Thrombocytopenia: Plan: likely secondary to liver issues and splenomegaly follow CBC-platelets stable in the low 100s (12) Ventral hernia: Plan: Difficult to reduce on examination Is fat filled and seen on CT abdomen/pelvis She reports this has been present ever since her hysterectomy many years ago and occasionally gives her pain Advised her to follow-up as an outpatient with general surgery to see about elective repair (13) Atrophic kidney: Plan: As above, atrophic kidney on the right Unclear etiology Needs to follow-up as an outpatient with urology with work-up to include cystoscopy and ureteroscopy (14) DVT prophylaxis: Plan: Heparin 5000 units subcutaneously every 12 hours Disposition-continued stay overnight, but likely discharged home tomorrow once blood culture ID and sensitivities are finalized Admission and Anticipated Discharge Date Admission Date: April 25, 2021 Subjective Patient feeling much better. Still some very mild suprapubic and left sided abdominal pain, no flank pain. Did spike a fever to 38 C last night but none so far today. She is eating and drinking. She is ambulating around the room independently. Her final blood culture identification and sensitivity is not returned and she prefers to stay again overnight in the hospital to make sure that she will be sent home on the proper antibiotics-does not want to be discharged too soon. I discussed her case with the urology team who would like to see her in the office given her atrophic right kidney for further work-up, however the urologist reviewed her CT scan and does not feel that she has a left sided ureterolithiasis but rather likely pelvic phleboliths. She does however have mild left-sided hydronephrosis likely secondary to acute pyelonephritis. Review of Systems Review of Systems: All systems reviewed & are unremarkable except as noted in HPI & below Physical Exam Constitutional: WD/WN, vitals as above Eyes: PERRL, conjunctivae normal, anicteric sclerae ENMT: external ear and nose normal, oropharynx normal Neck: trachea midline, no thyromegaly Respiratory: normal respiratory effort, lungs clear to auscultation Cardiovascular: RRR, no murmur, no edema Chest (Breasts): Chest: normal inspection of chest Gastrointestinal (Abdomen): Inspection/Auscultation: abdomen normal to inspection Percussion/Palpation: + abdomen tender (Mild at the site of her ventral hernia in the lower midabdomen ), abdomen soft and + hernia (5 cm bulge palpable and unable to be reduced infraumbilical region); no guarding Musculoskeletal: Extremities: extremities normal to inspection; no cyanosis and no clubbing Skin: no rashes, warm and dry Neurologic: moves all extremities and awake; no focal motor deficits Psychiatric: A+Ox3, euthymic affect Lymphatic: no lymphedema Results & Data Results & Data ([facility]) Vital Signs (Past 12 Hours) Vital Signs Temp Pulse Resp BP Pulse Ox 04/25/21 07:49 36.8 C 57 L 16 131/70 95 Laboratory Results 04/25/21 04/25/21 04/25/21 Range/Units 17:06 12:03 08:10 WBC (4.8-10.8) K/uL RBC (4.2-5.4) M/uL Hgb (12.0-16.0) g/dL Hct (37-47) % MCV (80-100) fL MCH (25-34) pg MCHC (32-36) g/dL RDW Std Deviation (36.4-46.3) fL RDW Coeff of Mikki (11.5-14.5) % Plt Count (130-400) K/uL MPV (7.4-10.4) fL Immature Gran % (Auto) % Neut % (Auto) % Lymph % (Auto) % [place] % (Auto) % Eos % (Auto) % Baso % (Auto) % Neut # (Auto) (1.4-6.5) K/uL Lymph # (Auto) (1.2-3.4) K/uL [place] # (Auto) (0.11-0.59) K/uL Eos # (Auto) (0-0.5) K/uL Baso # (Auto) (0-0.2) K/uL Immature Gran # (Auto) (0.00-0.02) K/uL Platelet Estimate (Normal) Giant Platelets Sodium (136-145) mmol/L Potassium (3.5-5.1) mmol/L Chloride (98-107) mmol/L Carbon Dioxide (21-32) mmol/L Anion Gap (3-11) BUN (7-18) mg/dl Creatinine (0.6-1.2) mg/dl Est Cr Clr Drug Dosing ml/min Est GFR ( Amer) ml/min Est GFR (Non-Af Amer) ml/min BUN/Creatinine Ratio (10-20) Glucose (70-99) mg/dl POC Glucose 99 146 H 111 H (70-99) mg/dl Estimat Average Glucose mg/dl Hemoglobin A1c (4.5-5.6) % Calcium (8.5-10.1) mg/dl 04/25/21 04/25/21 04/25/21 Range/Units 05:56 05:56 05:56 WBC 4.53 L (4.8-10.8) K/uL RBC 3.93 L (4.2-5.4) M/uL Hgb 11.8 L (12.0-16.0) g/dL Hct 36.3 L (37-47) % MCV 92.4 (80-100) fL MCH 30.0 (25-34) pg MCHC 32.5 (32-36) g/dL RDW Std Deviation 43.4 (36.4-46.3) fL RDW Coeff of Mikki 12.8 (11.5-14.5) % Plt Count 112 L (130-400) K/uL MPV 14.1 H (7.4-10.4) fL Immature Gran % (Auto) 0.0 % Neut % (Auto) 57.8 % Lymph % (Auto) 28.5 % [place] % (Auto) 9.5 % Eos % (Auto) 3.5 % Baso % (Auto) 0.7 % Neut # (Auto) 2.62 (1.4-6.5) K/uL Lymph # (Auto) 1.29 (1.2-3.4) K/uL [place] # (Auto) 0.43 (0.11-0.59) K/uL Eos # (Auto) 0.16 (0-0.5) K/uL Baso # (Auto) 0.03 (0-0.2) K/uL Immature Gran # (Auto) 0.00 (0.00-0.02) K/uL Platelet Estimate Decreased L (Normal) Giant Platelets 2+ Sodium 141 (136-145) mmol/L Potassium 4.2 (3.5-5.1) mmol/L Chloride 110 H (98-107) mmol/L Carbon Dioxide 27 (21-32) mmol/L Anion Gap 4.0 (3-11) BUN 13 (7-18) mg/dl Creatinine 0.94 D (0.6-1.2) mg/dl Est Cr Clr Drug Dosing 55.4 ml/min Est GFR ( Amer) 72.2 ml/min Est GFR (Non-Af Amer) 62.3 ml/min BUN/Creatinine Ratio 13.6 (10-20) Glucose 119 H (70-99) mg/dl POC Glucose (70-99) mg/dl Estimat Average Glucose 137 mg/dl Hemoglobin A1c 6.4 H (4.5-5.6) % Calcium 8.6 (8.5-10.1) mg/dl 04/24/21 Range/Units 20:32 WBC (4.8-10.8) K/uL RBC (4.2-5.4) M/uL Hgb (12.0-16.0) g/dL Hct (37-47) % MCV (80-100) fL MCH (25-34) pg MCHC (32-36) g/dL RDW Std Deviation (36.4-46.3) fL RDW Coeff of Mikki (11.5-14.5) % Plt Count (130-400) K/uL MPV (7.4-10.4) fL Immature Gran % (Auto) % Neut % (Auto) % Lymph % (Auto) % [place] % (Auto) % Eos % (Auto) % Baso % (Auto) % Neut # (Auto) (1.4-6.5) K/uL Lymph # (Auto) (1.2-3.4) K/uL [place] # (Auto) (0.11-0.59) K/uL Eos # (Auto) (0-0.5) K/uL Baso # (Auto) (0-0.2) K/uL Immature Gran # (Auto) (0.00-0.02) K/uL Platelet Estimate (Normal) Giant Platelets Sodium (136-145) mmol/L Potassium (3.5-5.1) mmol/L Chloride (98-107) mmol/L Carbon Dioxide (21-32) mmol/L Anion Gap (3-11) BUN (7-18) mg/dl Creatinine (0.6-1.2) mg/dl Est Cr Clr Drug Dosing ml/min Est GFR ( Amer) ml/min Est GFR (Non-Af Amer) ml/min BUN/Creatinine Ratio (10-20) Glucose (70-99) mg/dl POC Glucose 123 H (70-99) mg/dl Estimat Average Glucose mg/dl Hemoglobin A1c (4.5-5.6) % Calcium (8.5-10.1) mg/dl PG Care Time/CCT Total # of Minutes Spent Total Time Spent with Patient: Total time spent is greater than 50% in coordination of care (as documented) at patient's floor/unit and/or counseling patient: Coding Level of Care Code 24079 Subseq Hosp Care Lvl 3 Diagnoses Acute pyelonephritis N10 Bacteremia R78.81 Type 2 diabetes mellitus with albuminuria E11.29; R80.9 Lung nodule, solitary R91.1 Hypothyroidism E03.9 Hypertension I10 Hypertension type: essential hypertension Esophageal reflux K21.9 Dyslipidemia E78.5 Chronic obstructive pulmonary disease J44.9 Hepatosplenomegaly R16.2 Thrombocytopenia D69.6 DVT prophylaxis Z29.9 Ventral hernia K43.9 Atrophic kidney N26.1 (1) Hypertension Hypertension type: essential hypertension Qualified Code(s): I10 - Essential (primary) hypertension
[2021-04-25] MEDS: PANTOprazole 40 MG TAB PO SCH (16:03)
[2021-04-25] MEDS: ROSUVASTATIN CALCIUM 5 MG TAB PO SCH (21:38)
[2021-04-25] MEDS: LORazepam 0.5 MG TAB PO PRN (21:38)
[2021-04-25] MEDS: FLUTICASONE PROPIONATE NA SPR 16 GM BTL NAE SCH (21:38)
[2021-04-26] MEDS: LEVOTHYROXINE SODIUM 88 MCG TABLET PO SCH (05:39)
[2021-04-26 07:33] LABS: Mean Corpuscular Hgb Conc 34.1 g/dL (32-36)
[2021-04-26] MEDS: LOSARTAN POTASSIUM 25 MG TAB PO SCH (07:36)
[2021-04-26] MEDS: HEPARIN SOD 5,000 UNIT/0.5 ML VIAL SQ SCH (07:36)
[2021-04-26] MEDS: CALCIUM 600MG + VIT D 400 IU TAB PO SCH (07:36)
[2021-04-26] MEDS: FLUTICASONE/VILANTEROL 100/25MCG 14 PUFFS/INHALER INH SCH (07:37)
[2021-04-26] MEDS: MULTIVITAMIN TAB PO SCH (07:37)
[2021-04-26] MEDS: CEFEPIME 2,000 MG in SYRINGE 0 ML IV SCH (07:39)
[2021-04-26 07:41] LABS: Hematocrit (blood only) 40.2 % (37-47); Hemoglobin 13.7 g/dL (12.0-16.0); Mean Corpuscular Hemoglobin 30.6 pg (25-34); Mean Corpuscular Volume 89.9 fL (80-100); RDW Coefficient of Variation 12.7 % (11.5-14.5); RDW Standard Deviation 41.6 fL (36.4-46.3); Red Blood Count 4.47 M/uL (4.2-5.4); White Blood Count 4.94 K/uL (4.8-10.8)
[2021-04-26 07:56] LABS: Basophils # (auto) 0.06 K/uL (0-0.2); Basophils % (auto) 1.2 %; Eosinophils # (auto) 0.19 K/uL (0-0.5); Eosinophils % (auto) 3.8 %; Lymphocytes # (auto) 1.47 K/uL (1.2-3.4); Lymphocytes % (auto) 29.8 %; Mean Platelet Volume 13.8 fL (7.4-10.4); Monocytes # (auto) 0.52 K/uL (0.11-0.59); Monocytes % (auto) 10.5 %; Neutrophils % (auto) 54.7 %; Platelet Count 162 K/uL (130-400); Platelet Estimate Normal (Normal)
[2021-04-26 08:10] LABS: BUN Creatinine Ratio 11.7 (10-20); Creatinine Clr Calc Pharmacy 50.6 ml/min; Est GFR (African American) 64.7 ml/min; Est GFR (Non-African American) 55.8 ml/min; Potassium 3.9 mmol/L (3.5-5.1)
[2021-04-26] MEDS: INSULIN ASPART 100 UNITS/ML 3 ML PEN SC SCH (09:08)
--- NOTE | 2021-04-26 10:42 | Discharge Summary ---
Date of Service April 26, 2021 Admission HPI Per Admitting Provider Attending: Dr. Verdin This is a 66-year-old female no with a past medical history of cervicalgia, tubular adenoma of colon, history of thrombocytopenia, onychomycosis, solitary lung nodule right lower lobe, diabetes mellitus type 2, diverticulosis, hypertension, hypothyroidism. Patient states that last Saturday she began having some discomfort in the suprapubic region. She also noted some discomfort in the genital region. She thought initially that she may be developing a yeast infection but then developed fever and rigors over the weekend. She presented the emergency room yesterday and was treated with Bactrim and discharged home with a diagnosis of acute pyelonephritis. Patient was pancultured yesterday and today results revealed gram-negative bacilli in the urine as well as 2 out of 2 blood cultur es. Patient was called and asked to report back to the emergency department for evaluation and IV antibiotics. We are then asked to evaluate the patient for appropriateness for admission. Patient reports that since starting the Bactrim she feels a little bit better but did still have some rigors yesterday. She has had no nausea or vomiting. She has no hematuria. She has noted that her urine has been darker. She has no specific CVA tenderness. She has no suprapubic tenderness today. Patient was given cefepime in the emergency department. Principal Diagnosis Acute pyelonephritis, E. coli bacteremia Discharge Exam Constitutional WD/WN, vitals as above Eyes + anicteric sclerae ENMT external ear and nose normal, oropharynx normal Neck trachea midline, no thyromegaly Respiratory normal respiratory effort, lungs clear to auscultation Cardiovascular RRR, no murmur, no edema Chest (Breasts) Chest: normal inspection of chest Gastrointestinal (Abdomen) Inspection/Auscultation: abdomen normal to inspection Percussion/Palpation: + abdomen tender (Mild at the site of her ventral hernia in the lower midabdomen ), abdomen soft and + hernia (5 cm bulge palpable and unable to be reduced infraumbilical region); no guarding Musculoskeletal Extremities: extremities normal to inspection; no cyanosis and no clubbing Skin no rashes, warm and dry Neurologic moves all extremities and awake; no focal motor deficits Psychiatric A+Ox3, euthymic affect Lymphatic no lymphedema Discharge Data Allergies Allergy/AdvReac Type Severity Reaction Status Date / Time Penicillins Allergy Mild HIVES;SOB Verified 04/24/21 08:12 shellfish derived Allergy Mild HIVES;SOB Verified 04/24/21 08:12 clarithromycin [From Biaxin] AdvReac Verified 04/24/21 08:12 varenicline [From Chantix] AdvReac pt felt Verified 04/24/21 08:12 immobile Consultations 04/24/21 08:37 ED Decision to Admit Stat Ordered Studies 04/24/21 09:23 US renal/blad retro comp Routine Hospital Course (1) Acute pyelonephritis: Presented with with fever/rigors, left-sided abdominal pain, and found to have urinary tract infection/acute pyelonephritis upon initial visit to the ER 04/23. Was discharged home on Bactrim. Blood cultures drawn during the ER visit revealed gram-negative bacilli and the patient was recalled by the emergency room staff for admission for IV antibiotics CT Abd/pel from 04/23 with mild left hydronephrosis and hydroureter with evidence of pyelonephritis, atrophic right kidney Fevers now resolved Renal ultrasound performed * Atrophic right kidney with nonobstructive calculus which was also seen on recent prior CT of abdomen and pelvis. * Possible minimal hydronephrosis on the left. * Nonobstructive calculi are seen. * Mild dilatation of the collecting system of the left kidney as well as minimal hydronephrosis noted Suspect the mild hydronephrosis on the left is secondary to the acute pyelonephritis-there is no distal ureterolithiasis but rather a pelvic phlebolith outside of the ureter-Case reviewed with urologist Dr. Mcgee Urine culture is growing pansensitive E. coli Blood cultures with pansensitive E. coli as well Repeat blood cultures no growth to date-drawn after she took 1 dose of Bactrim -received cefepime IV and will now send home on Cipro 500mg po bid x 12 more days (avoid bactrim due to atrophic right kidney, hepatosplenomegaly and thrombocytopenia) -Should follow-up with urology as an outpatient for work-up for atrophic right kidney (2) Bacteremia: As above (3) Type 2 diabetes mellitus with albuminuria: Hold Metformin from home but restart on discharge and consider increasing dose due to fatty liver Blood glucose here is well controlled Hemoglobin A1c is 6.4% (4) Lung nodule, solitary: Incidental finding on CT scan of the abdomen pelvis Dedicated CT scan of the lung on 02/10/2020 and 02/13/2021 shows stable 3 mm right lower lobe nodule Patient with past medical history including tobacco abuse Continue annual follow-up with CT scans (5) Hypothyroidism: Continue levothyroxine 88 mcg daily TSH normal in 06/2020 (6) Hypertension: Blood pressures are fairly well controlled here Continue losartan counseled on low sodium diet (7) Esophageal reflux: continue PPI (8) Dyslipidemia: Continue rosuvastatin (9) Chronic obstructive pulmonary disease: Prior tobacco abuse history Symbicort as an outpatient Breo Ellipta (ICS/LABA) while inpatient Vital signs per protocol No evidence of acute exacerbation (10) Hepatosplenomegaly: noted on CT abd/pel could be from fatty liver f/u as outpt Also with some scattered retroperitoneal lymphadenopathy which is not pathologic by size criteria -recommend weight loss, increased dose of metformin, low carb diet, exercise consider outpt referral to GI Discussed all of this with patient (11) Thrombocytopenia: likely secondary to liver issues and splenomegaly follow CBC-platelets stable in the low 100s (12) Ventral hernia: Difficult to reduce on examination Is fat filled and seen on CT abdomen/pelvis She reports this has been present ever since her hysterectomy many years ago and occasionally gives her pain Advised her to follow-up as an outpatient with general surgery to see about elective repair (13) Atrophic kidney: As above, atrophic kidney on the right Unclear etiology Needs to follow-up as an outpatient with urology with work-up to include cystoscopy and ureteroscopy-this appt is scheduled (14) DVT prophylaxis: Heparin 5000 units subcutaneously every 12 hours was provided Disposition-dc to home Total Time Total Time Spent Total Time Spent (In Minutes): 35 min Discharge Plan Discharge Items Patient Disposition: Home - Self-Care Reason For Visit: PYELONEPHRITIS Discharge Diagnosis: Acute pyelonephritis, E. coli bacteremia Condition on Discharge: Good Activity: As commented below Lifting: Gradually increase as tolerated Bathing: No limitations Exercise/Sports: Gradually increase as tolerated Driving/Machine Use: No limitations Non-emergency contact: Primary Care Provider and Urologist Call non-emergency contact if: you have any medication questions, your symptoms worsen, your pain is not controlled, you have a fever and your temperature is above 101 Follow-up/Referrals: Jolie Leal MD [Primary Care Provider] - (Follow up within 1-2 we eks.) Zay Mcgee, DO [Physician] - (Follow up as already scheduled as a new patient.) Diet: Carb Consistent or DM2, Heart Healthy and Low Sodium (2gm) Addtl Attending Provider Instructions: You were admitted with an infection of your kidney that spread into your blood stream. The responsible bacteria is called E. coli. Please continue taking the antibiotic called Cipro twice a day for 12 more days. Please follow up with the Urologist for further workup of your small kidney on the right that likely is non-functioning. You were also noted to have an enlarged liver and spleen, likely secondary to a fatty liver. This can be improved with a low carbohydrate diet, weight loss, and exercise. Follow up with your PCP on this. If you develop nausea/vomiting, fevers/chills, or worsening abdominal pain or back pain, please return to the hospital. Follow up with your PCP within 1-2 weeks after discharge. Pending Studies at Discharge: Yes (Final blood culture results-no growth to date) Stand-Alone Forms: [facility], Smoking Cessation Medications and DC Order Prescriptions: New ciprofloxacin HCl 500 mg tablet 500 mg PO BID Qty: 24 RF: 0 Continued fluticasone propionate [Flonase Allergy Relief] 50 mcg/actuation spray,suspension 1 sprays intranasal HS Qty: 1 RF: 0 levalbuterol tartrate [Xopenex HFA] 45 mcg/actuation HFA aerosol inhaler See Rx Instructions INH .COMPLEX RF: 0 multivitamin Tablet 1 tab PO QAM RF: 0 calcium carbonate-vitamin D3 [Calcium 500 + D] 500 mg(1,250mg) -400 unit Tablet 1 tab PO QAM RF: 0 metformin 500 mg tablet 500 mg PO BID RF: 0 levothyroxine [Synthroid] 88 mcg tablet 88 mcg PO DAILYBB RF: 0 lorazepam [Ativan] 0.5 mg tablet 0.5 mg PO BID PRN (Reason: anxiety) RF: 0 losartan [Cozaar] 25 mg tablet 25 mg PO QAM RF: 0 omeprazole 20 mg capsule,delayed release(DR/EC) 20 mg PO QDD RF: 0 rosuvastatin [Crestor] 5 mg tablet 5 mg PO HS RF: 0 budesonide-formoterol [Symbicort] 160-4.5 mcg/actuation HFA aerosol inhaler 2 puff inhalation QAM RF: 0 Discontinued sulfamethoxazole-trimethoprim [Bactrim DS] 800-160 mg tablet 1 tab PO Q12H 10 Days Qty: 20 RF: 0 Discharge Orders: Discharge Order (Routine); Ordered 04/26/21 Ordered By: Dixie Garcia/Other Patient Handouts: A1C, High Blood Sugar (Hyperglycemia), Hypoglycemia (Low Blood Sugar), Managing Type 2 Diabetes Admission Data Admit Date/Time: 04/25/21 15:24 Attending Provider: Dixie Verdin Admit Provider: Dixie Verdin Primary Care Provider: Jolie Leal Other Providers: Dixie Verdin Other Interventions: Discharge Summary Assessment (RN) Last Done: 04/26/21 10:16 Coding Level of Care Code D/C DAY MANAGEMENT >30 MINS Diagnoses Acute pyelonephritis N10 Bacteremia R78.81 Type 2 diabetes mellitus with albuminuria E11.29; R80.9 Lung nodule, solitary R91.1 Hypothyroidism E03.9 Hypertension I10 Hypertension type: essential hypertension Esophageal reflux K21.9 Dyslipidemia E78.5 Chronic obstructive pulmonary disease J44.9 Hepatosplenomegaly R16.2 Thrombocytopenia D69.6 Ventral hernia K43.9 Atrophic kidney N26.1 DVT prophylaxis Z29.9
== END 2021-04-26 10:59 | disposition home or self-care (01) | DRG 872 ==
LOC: ED 07:19 → 3N 07:19
DX: Z79.84 Long term (current) use of oral hypoglycemic drugs; D69.6 Thrombocytopenia, unspecified; N13.30 Unspecified hydronephrosis; I10 Essential (primary) hypertension; R91.1 Solitary pulmonary nodule; Z88.0 Allergy status to penicillin; E03.9 Hypothyroidism, unspecified; J44.9 Chronic obstructive pulmonary disease, unspecified; E11.9 Type 2 diabetes mellitus without complications; K43.9 Ventral hernia without obstruction or gangrene; R16.2 Hepatomegaly with splenomegaly, not elsewhere classified; N10 Acute pyelonephritis; Z87.891 Personal history of nicotine dependence; K21.9 Gastro-esophageal reflux disease without esophagitis; R78.81 Bacteremia